=== PATIENT | female | born 1945 | race Caucasian/White ===

== ENCOUNTER → 2016-11-15 | Outpatient (CLI) | payer MEDICARE, OTHER | END | disposition home or self-care (01) | LOC: GMAL 12:26 | PROVIDERS: ATTEND Family Medicine | DX: D51.3 Other dietary vitamin B12 deficiency anemia (principal); E55.9 Vitamin D deficiency, unspecified ==

== ENCOUNTER 2017-03-12 05:52 | Day surgery (SDC) | payer MEDICARE, OTHER ==
[2017-03-12] MEDS ORDERED: PROPOFOL 200 MG/20 ML VIAL IV ONE (07:00)
[2017-03-12] MEDS ORDERED: LACTATED RINGERS 1,000 ML ONE (07:34)
--- NOTE | 2017-03-12 09:43 | OP ---
DATE OF PROCEDURE: 03/12/17 PREOPERATIVE DIAGNOSIS: 1. Bright red blood per rectum. POSTOPERATIVE DIAGNOSIS: 1. Multiple polypectomies, cecum, ascending colon and hepatic flexure. 2. Internal and external hemorrhoids. 3. Mild sigmoid diverticulosis. 4. 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 PROCEDURE: 1. Colonoscopy. SURGEON: Surjit Landaverde MD. ANESTHESIA: MAC. PROCEDURE: Informed consent was obtained prior to sedation. The preprocedure cardiopulmonary assessment was satisfactory. The patient was placed in the left lateral decubitus position and was sedated. The tip of the Olympus colonoscope was inserted in the rectum and guided through the entire colon under direct visualization. The ileocecal valve and appendiceal orifice were identified. In the cecum, there was a 4 mm polyp that was resected and retrieved using a hot snare. In the ascending colon, there were 3 polyps that were resected and retrieved. These measured between 3 and 5 mm. In the hepatic flexure, there were 2 polyps. They were resected and retrieved using a hot snare. Continuation of withdrawal showed evidence of arteriovenous malformations in the ascending colon and cecum. In the sigmoid colon, there was some evidence of small diverticulosis the rectum appeared normal except for internal hemorrhoids. These were found during retroflexion. No other abnormality was identified during the colonoscopy. The scope was withdrawn from the patient and the procedure was terminated. RECOMMENDATION: 1. Cologuard stool sample in 3 years. Repeat colonoscopy immediately of Cologuard sample is positive. 2. Watch for complications like bleeding, abdominal pain or other and return to the Emergency Room immediately. 3. Followup path. 4. If Cologuard is negative, repeat colonoscopy in 5 years. 5. Consider hemorrhoidal banding for internal hemorrhoid management. 6. Followup in my office in 4 weeks. #[id number] [facility]
[2017-03-12 10:12] VITALS: O2SAT 100
[2017-03-12 13:06] VITALS: BP 174/67; TEMP 98
== END 2017-03-12 10:10 | disposition home or self-care (01) ==
LOC: AMB 05:52
DX: K62.5 Hemorrhage of anus and rectum (principal); D12.0 Benign neoplasm of cecum; D12.2 Benign neoplasm of ascending colon; D12.3 Benign neoplasm of transverse colon; K64.8 Other hemorrhoids; K64.4 Residual hemorrhoidal skin tags; K57.30 Diverticulosis of large intestine without perforation or abscess without bleeding; Q27.33 Arteriovenous malformation of digestive system vessel; Z86.010 Personal history of colon polyps; Z79.899 Other long term (current) drug therapy
CPT/HCPCS: 00810; 45385; J3490; J7120

== ENCOUNTER → 2017-05-19 | Outpatient (CLI) | payer MEDICARE, OTHER | END | disposition home or self-care (01) | LOC: GMAL 11:36 | PROVIDERS: ATTEND Family Medicine | DX: D51.3 Other dietary vitamin B12 deficiency anemia (principal); E55.9 Vitamin D deficiency, unspecified ==

== ENCOUNTER → 2017-06-16 | Outpatient (CLI) | payer MEDICARE, OTHER ==
--- NOTE | 2017-06-16 19:04 | CT ---
EXAM DESCRIPTION: Abdomen/Pelvis w/Contrast (accession [id number]), Chest w/Contrast (accession [id number]) CLINICAL HISTORY: 72 years, Female, ABNORMAL WEIGHT LOSS COMPARISON: October 18, 2012 TECHNIQUE: CT of the chest, abdomen, and pelvis are performed following IV administration of nonionic contrast. This exam was performed according to our departmental dose-optimization program, which includes automated exposure control, adjustment of the mA and/or kV according to patient size and/or use of iterative reconstruction technique. FINDINGS: Contrast enhanced examination of the chest demonstrates no evidence of pulmonary mass or dense consolidation or pleural effusion. A pattern to suggest metastatic disease is not apparent. The chest wall and axillary region as well as the thoracic inlet and mediastinum are unremarkable. In the anterior mediastinum is a triangular-shaped approximate 2.5 x 3 cm water density mass most consistent with some form of mediastinal cyst. Attenuation values consistent with water are present. A teratoma or lymph node or lymphoma or thymoma is thought unlikely particularly with the water density of the small mass. MRI examination of the chest without and with contrast enhancement in an effort to prove this represents a benign cystic abnormality is recommended. The hilar structures and remainder the mediastinum is unremarkable with a very small retrocardiac hiatal hernia noted. Abdominal CT demonstrates normal enhancement of the liver without metastatic disease or mass. Benign moderate left renal cyst upper pole and moderately large approximate 4 cm mid pole right renal cyst is noted. Extensive aortic calcification is evident. Contrast extends throughout the abdomen and fills the colon to the level of the rectum. Uterus appears to be surgically absent. No abdominal ascites or pelvic fluid collections are noted. The gallbladder is normally distended without ductal dilation and the pancreas is moderately atrophic. A small normal spleen is present and normal-appearing adrenal glands are noted. Extensive aortic calcification without aneurysm is noted. IMPRESSION: 1. Somewhat triangularly shaped 2.5 x 3 cm water density mass in the anterior mediastinum in the midline retrosternal region. 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 Confirmation of a cystic character with MR examination without and with contrast enhancement is recommended. The low-density appearance of this lesion suggests that lymphoma or teratoma or thymoma represent unlikely possibilities. 2. Moderate aortic atherosclerosis without aneurysm within the abdomen. 3. Cystic disease of each kidney. 4. Remainder the chest and abdomen is unremarkable without changes of metastatic disease. 5. Multilevel lumbar spine disease with multiple [id number] compression deformities and dense calcification of the disc at T11-12 with herniation of calcified disc material into the anterior spinal canal. This herniation of calcified disc material posteriorly is new since 2013 examination. Interval development of degenerative spondylolisthesis at the L5-S1 mild is also noted since prior 2013 study. Electronically signed by: Garland Bruce MD 06/16/2017 7:[address] [facility]
--- NOTE | 2017-06-16 19:04 | CT ---
EXAM DESCRIPTION: Abdomen/Pelvis w/Contrast (accession [id number]), Chest w/Contrast (accession [id number]) CLINICAL HISTORY: 72 years, Female, ABNORMAL WEIGHT LOSS COMPARISON: October 18, 2012 TECHNIQUE: CT of the chest, abdomen, and pelvis are performed following IV administration of nonionic contrast. This exam was performed according to our departmental dose-optimization program, which includes automated exposure control, adjustment of the mA and/or kV according to patient size and/or use of iterative reconstruction technique. FINDINGS: Contrast enhanced examination of the chest demonstrates no evidence of pulmonary mass or dense consolidation or pleural effusion. A pattern to suggest metastatic disease is not apparent. The chest wall and axillary region as well as the thoracic inlet and mediastinum are unremarkable. In the anterior mediastinum is a triangular-shaped approximate 2.5 x 3 cm water density mass most consistent with some form of mediastinal cyst. Attenuation values consistent with water are present. A teratoma or lymph node or lymphoma or thymoma is thought unlikely particularly with the water density of the small mass. MRI examination of the chest without and with contrast enhancement in an effort to prove this represents a benign cystic abnormality is recommended. The hilar structures and remainder the mediastinum is unremarkable with a very small retrocardiac hiatal hernia noted. Abdominal CT demonstrates normal enhancement of the liver without metastatic disease or mass. Benign moderate left renal cyst upper pole and moderately large approximate 4 cm mid pole right renal cyst is noted. Extensive aortic calcification is evident. Contrast extends throughout the abdomen and fills the colon to the level of the rectum. Uterus appears to be surgically absent. No abdominal ascites or pelvic fluid collections are noted. The gallbladder is normally distended without ductal dilation and the pancreas is moderately atrophic. A small normal spleen is present and normal-appearing adrenal glands are noted. Extensive aortic calcification without aneurysm is noted. IMPRESSION: 1. Somewhat triangularly shaped 2.5 x 3 cm water density mass in the anterior mediastinum in the midline retrosternal region. 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 Confirmation of a cystic character with MR examination without and with contrast enhancement is recommended. The low-density appearance of this lesion suggests that lymphoma or teratoma or thymoma represent unlikely possibilities. 2. Moderate aortic atherosclerosis without aneurysm within the abdomen. 3. Cystic disease of each kidney. 4. Remainder the chest and abdomen is unremarkable without changes of metastatic disease. 5. Multilevel lumbar spine disease with multiple [id number] compression deformities and dense calcification of the disc at T11-12 with herniation of calcified disc material into the anterior spinal canal. This herniation of calcified disc material posteriorly is new since 2013 examination. Interval development of degenerative spondylolisthesis at the L5-S1 mild is also noted since prior 2013 study. Electronically signed by: Garland Bruce MD 06/16/2017 7:03 PM [facility]
== END | disposition home or self-care (01) ==
LOC: CT 09:45
PROVIDERS: ATTEND Family Medicine
DX: R63.4 Abnormal weight loss (principal)

== ENCOUNTER 2018-06-08 09:57 | Emergency (ER) | payer MEDICARE ==
[2018-06-08 10:20] VITALS: TEMP 96.9; O2SAT 98
--- NOTE | 2018-06-08 11:16 | RAD ---
EXAM DESCRIPTION: Chest,1 View CLINICAL HISTORY: syncope COMPARISON: Portable chest 01/03/2012. CT scan of the head without IV contrast on this visit. TECHNIQUE: AP portable taken at 1057 hours, upright position. FINDINGS: Hyperinflation of the lungs bilaterally. No infiltrate. Nodule in the suprahilar right lung may represent a vascular structure. A smaller nodule is seen in the interspace between the anterior second and third right ribs in the posterior right fourth and fifth ribs. No pleural effusion or pneumothorax bilaterally. Heart size and pulmonary vascularity unremarkable. Atherosclerotic changes of the aorta. Senescent changes of the thoracic osseous structures including cartilage with calcification. IMPRESSION: 2 well-defined radiodense nodules versus vascular structures are other nonspecific densities overlying the right upper lobe right lung. Also emphysematous changes in both lungs. Consider follow-up chest CT scan on a nonemergent basis to evaluate for pulmonary nodules. No cardiomegaly or pulmonary vascular congestion. Electronically signed by: Brown Novak MD 06/08/2018 11:15 AM [employer]
--- NOTE | 2018-06-08 11:23 | CT ---
EXAM DESCRIPTION: Head: Computed Tomography. CLINICAL HISTORY: syncope COMPARISON: Chest x-ray on the same visit. TECHNIQUE: Non-helical axial scans through the skull and brain, at 2.5 x 20 mm intervals, non-contrast. Coronal and sagittal 2.0 mm reconstructions. Total Exam DLP: 752.48 mGy-cm. This exam was performed according to our departmental dose-optimization program which includes automated exposure control, adjustment of the mA and/or kV according to patient size and/or use of iterative reconstruction technique; to reduce radiation dose to as low as reasonably achievable (ALARA). FINDINGS: No hemorrhage, no mass-effect, and no midline shift. Periventricular white matter shows low-density predominantly in the frontal lobes, more left than right no abnormal radiodense material in the brain parenchyma. Vascular calcifications anterior.; physiologic calcifications in the pineal gland and choroid plexus. No effacement or displacement of the ventricles, CSF spaces, or subdural spaces. No extra axial fluid collection or hemorrhage. No gross abnormalities of the bony calvarium. The paranasal sinuses are unremarkable. Minimal soft tissue density in the inferior mastoid air cells bilaterally. IMPRESSION: 1. No hemorrhage, no mass effect, no midline shift. Bilateral white matter changes most likely related to cerebral microvascular disease and aging. Slightly more prominent in the left periventricular frontal lobe, abutting the left frontal horn. 2. CT scans are insensitive for detecting small CVAs in the first 24 hours after onset. Evaluation of the brain stem is also limited. If symptoms persist, consider NON-EMERGENT MRI scan of the brain with diffusion imaging. 3. 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 Electronically signed by: Brown Novak MD 06/08/2018 11:22 AM [facility]
[2018-06-08] MEDS ORDERED: MAGNESIUM SULFATE PREMIX 2GM 2 GM in PREMIX BAG 1 BAG IVPB ONE (11:28)
[2018-06-08] MEDS ORDERED: POTASSIUM CHLORIDE ELIXIR 20 MEQ/15 ML UD PO ONE ×2 (11:28→12:30)
[2018-06-08] MEDS ORDERED: MAGNESIUM SULFATE PREMIX 2GM 50 ML IVPB ONE (11:35)
[2018-06-08 12:04] VITALS: BP 129/69
[2018-06-08] MEDS ORDERED: CIPROFLOXACIN 500 MG TAB PO ONE (12:30)
--- NOTE | 2018-06-08 12:45 | ED.PDOC ---
History of Present Illness - General Chief Complaint: Neuro Symptoms/Deficits Stated Complaint: fainting and fall Time Seen by Provider: 06/08/18 10:03 Source: patient Exam Limitations: no limitations - History of Present Illness Initial Comments: the patient is a 73-year-old female presenting to the emergency room after having passed out while getting out of bed this morning. The patient reports that she has had dizziness with getting up for the better part of the last year. She has had several near syncopal episodes and she is actually passed out a couple of times. She presented to the emergency room today because she had some skin tears and was hurting more than normal. She does take a water pill. She does have known lung disease. She does take a daily steroid. No fevers. No new symptoms otherwise. She did not hit her head. No confusion after she woke up. No neck pain. No chest pain. No new shortness of breath. No palpitations.she has minor skin tears over the left elbow and the left garcía. Timing/Duration: unsure Severity: moderate Improving Factors: nothing Worsening Factors: nothing Associated Symptoms: denies symptoms Allergies/Adverse Reactions: Allergies Penicillins Allergy (Verified 01/17/16 11:35) Home Medications: Ambulatory Orders Alprazolam [Xanax Xr] 1.5 mg PO BEDTIME 12/07/13 Ipratropium-Albuterol [Combivent Respimat] 1 aer IN PRN PRN 12/07/13 Triamterene & Hydrochlorothiaz [Triamterene/Hydrochloroth 37.5-25 mg] 1 tab PO DAILY 12/07/13 Losartan Potassium [Cozaar] 100 mg PO BEDTIME 01/17/16 Symbicort Inhaler 160/4.5 1 puff NEB BID 03/11/17 Amlodipine Besylate 5 mg PO DAILY 06/08/18 Biotin [Biotin Maximum] 10,000 mcg PO DAILY 06/08/18 Cholecalciferol [D3 2000] 1,000 unit PO 06/08/18 Ciprofloxacin [Cipro] 500 mg PO BID #6 tab 06/08/18 Cyanocobalamin [B12] 2,500 mcg PO DAILY 06/08/18 Potassium Chloride [Potassium Chloride ER] 20 meq PO DAILY #14 tab 06/08/18 Prednisone 5 mg PO SRIRAM-OTH-DAY 06/08/18 Prednisone 10 mg PO SRIRAM-OTH-DAY 06/08/18 Review of Systems - Review of Systems Constitutional: States: malaise EENTM: States: no symptoms reported Respiratory: States: short of breath - chronic Cardiology: States: no symptoms reported Gastrointestinal/Abdominal: States: no symptoms reported Genitourinary: States: no symptoms reported Musculoskeletal: States: back pain - chronic Skin: States: see HPI Neurological: States: no symptoms reported Endocrine: States: no symptoms reported All other Systems: No Change from Baseline Past Medical History (General) - Patient Medical History Hx Asthma: Yes Hx of COPD: Yes Hx Congestive Heart Failure: No Hx Hypertension: Yes Hx Diabetes: No Hx MRSA: No - Vaccination History Hx Tetanus, Diphtheria Vaccination: No Hx Influenza Vaccination: Yes - 2015 Hx Pneumococcal Vaccination: Yes - 2015 - Social History Hx Tobacco Use: Yes - quit over 10 yrs ago - Female History Patient : No - Triage Comment ED Triage Comment: EMS states patient had syncopical episode and fell hitting her left elbow. C/o left elobw pain. Family Medical History - Family History Mother Family History: Unknown Living Status: Physical Exam - Physical Exam General Appearance: Alert, Anxious, No apparent distress Eye Exam: bilateral normal Ears, Nose, Throat: hearing grossly normal, other - poor fitting dentures Neck: full range of motion, supple Respiratory: lungs clear, normal breath sounds, no respiratory distress, no accessory muscle use Cardiovascular/Chest: normal peripheral pulses, regular rate, rhythm, no edema Peripheral Pulses: radial,right: 2+, radial,left: 2+, dorsalis pedis,right: 2+, dorsalis pedis,left: 2+ Gastrointestinal/Abdominal: non tender, soft Rectal Exam: deferred Back Exam: other - hronic diffuse back discomfort palpation. No obvious new injury Extremity: normal range of motion, no pedal edema, no calf tenderness, normal capillary refill Neurologic: press tender smoke signal II-XII nml as tested, alert, normal mood/affect - she is anxious , oriented x 3 Skin Exam: normal color - skin tears to the left elbow and left garcía. These are minor. Comments: Vital Signs - 24 hr 06/08/18 06/08/18 10:00 12:00 Temperature 96.9 F L Pulse Rate [ 96 H 97 H monitor] Respiratory 18 20 Rate Blood Pressure 129/69 [Left Arm] Blood Pressure 138/70 [right] O2 Sat by Pulse 98 98 Oximetry Progress - Progress Progress: 06/08/18 12:48 the patient is a 73-year-old female presenting to emergency room after a syncopal episode this morning. This appears to be most likely due to electrolyte issues. The patient is hyponatremic, hypokalemic and has a low magnesium as well. Additionally she is in mild acute renal failure. She does have a mild UTI. The sodium, potassium and magnesium issues are likely related to her diuretics. These will be held at least for the next week. if a diuretic needs to be restarted then consideration could be given towards using low-dose intermittent Lasix or spironolactone. She has received a liter of IV fluids here to help with the renal insufficiency. Her kidney function as well as electrolytes need to be rechecked next week. I did offer to put the patient in the hospital to correct slowly with mild hypertonic saline overnight however she has declined this as she has animals to take care of and her house to winterize before the freeze tonight. The patient will be written for oral potassium to take for the next few weeks as a supplement. She was given 80 mEq here. She was also given 2 g of magnesium here. She will also be written for ciprofloxacin for 3 days for UTI. It is a mild urinary tract infection that is in all likelihood asymptomatic. The patient does need to have a CT scan of the chest with IV contrast in coming weeks due to the pulmonary nodules in the right upper lobe as well as for follow-up of the mediastinal cystic structure noted on previous CT scan. These may possibly be contributing to the hyponatremia as well. She is otherwise to continue her routine home medications. She needs to follow back up with her primary care doctor next week for the above issues. ER warnings were given for any worsening. Skin tears received localized wound care. incidentally, the patient does appear to have a mild reflex tachycardia with standing, with an associated mild rise in blood pressure. She may benefit from having a heart rate control medication added in place of her amlodipine. We will defer this decision to her primary care doctor. - Results/Orders Results/Orders: Laboratory Tests 06/08/18 06/08/18 06/08/18 10:40 10:55 11:30 WBC RBC Hgb Hct MCV MCH MCHC RDW Plt Count MPV Absolute Neuts (auto) Absolute Lymphs (auto) Absolute Monos (auto) Absolute Eos (auto) Absolute Basos (auto) Neutrophils % Lymphocytes % Monocytes % Eosinophils % Basophils % PT 9.8 INR 0.98 PTT (SP) 23.6 Sodium Potassium Chloride Carbon Dioxide Anion Gap BUN Creatinine BUN/Creatinine Ratio Random Glucose Serum Osmolality Lactic Acid 1.0 Calcium Magnesium Total Bilirubin AST ALT Alkaline Phosphatase Creatine Kinase CK-MB (CK-2) CK-MB (CK-2) % Troponin I B-Natriuretic Peptide Serum Total Protein Albumin Globulin Albumin/Globulin Ratio TSH Urine Color Yellow Urine Appearance Clear Urine pH 6.0 Ur Specific Warren <= 1.005 Urine Protein Negative Urine Glucose (UA) Negative Urine Ketones Negative Urine Blood Trace-lysed H Urine Nitrite Negative Urine Bilirubin Negative Urine Urobilinogen 0.2 Ur Leukocyte Esterase Small H Urine RBC 0-1 Urine WBC 10-20 H Ur Epithelial Cells 3-5 Ur Renal Epithelial Cell 5-10 Urine Bacteria Rare 06/08/18 06/08/18 Unknown Unknown WBC 7.7 RBC 4.29 Hgb 13.6 Hct 39.4 MCV 92.0 MCH 31.6 H MCHC 34.4 RDW 13.3 Plt Count 320 MPV 7.0 L Absolute Neuts (auto) 4.80 Absolute Lymphs (auto) 2.00 Absolute Monos (auto) 0.80 Absolute Eos (auto) 0.10 Absolute Basos (auto) 0.10 Neutrophils % 62.3 Lymphocytes % 25.6 Monocytes % 9.9 H Eosinophils % 1.3 Basophils % 0.9 PT INR PTT (SP) Sodium 126 L Potassium 2.9 L Chloride 87 L Carbon Dioxide 26 Anion Gap 15.9 BUN 29 H Creatinine 1.56 H BUN/Creatinine Ratio 18.6 Random Glucose 130 H Serum Osmolality 260.9 L Lactic Acid Calcium 9.6 Magnesium 1.7 L Total Bilirubin 1.1 H AST 30 ALT 28 Alkaline Phosphatase 46 Creatine Kinase 154 H CK-MB (CK-2) 4.8 H* CK-MB (CK-2) % 3.12 Troponin I < 0.02 B-Natriuretic Peptide 25.2 Serum Total Protein 6.9 Albumin 4.4 Globulin 2.5 Albumin/Globulin Ratio 1.8 TSH 4.09 Urine Color Urine Appearance Urine pH Ur Specific Warren Urine Protein Urine Glucose (UA) Urine Ketones Urine Blood Urine Nitrite Urine Bilirubin Urine Urobilinogen Ur Leukocyte Esterase Urine RBC Urine WBC Ur Epithelial Cells Ur Renal Epithelial Cell Urine Bacteria chest x-ray shows 2 new small nodules in the right upper lung field. Follow-up CT scan is recommended on a nonemergent basis. EKG shows normal sinus rhythm at 95 bpm. Normal axis. Normal R-wave progression. No acute ST segment changes concerning for ischemia. Head CT shows no acute findings. Chronic findings are present. Departure - Departure Clinical Impression: Hyponatremia, Hypokalemia, Hypomagnesemia, Cystitis Acute renal failure Qualifiers: Acute renal failure type: unspecified Qualified Code(s): N17.9 - Acute kidney failure, unspecified Disposition: Discharge to Home or Self Care Condition: Fair Departure Forms: ED Discharge - Pt. Copy, Patient Portal Self Enrollment Instructions: DI for Syncope in Adults (Fainting), Hyponatremia (DC), Hypokalemia (DC), Urinary Tract Infections in Adults Diet: regular diet Activity: increase activity as tolerated Referrals: Wan Conteh III, MD [Primary Care Provider] - 1-2 Weeks Prescriptions: Ciprofloxacin [Cipro] 500 mg PO BID #6 tab Potassium Chloride [Potassium Chloride ER] 20 meq PO DAILY #14 tab Home Medications: Ambulatory Orders Alprazolam [Xanax Xr] 1.5 mg PO BEDTIME 12/07/13 Ipratropium-Albuterol [Combivent Respimat] 1 aer IN PRN PRN 12/07/13 Triamterene & Hydrochlorothiaz [Triamterene/Hydrochloroth 37.5-25 mg] 1 tab PO DAILY 12/07/13 Losartan Potassium [Cozaar] 100 mg PO BEDTIME 01/17/16 Symbicort Inhaler 160/4.5 1 puff NEB BID 03/11/17 Amlodipine Besylate 5 mg PO DAILY 06/08/18 Biotin [Biotin Maximum] 10,000 mcg PO DAILY 06/08/18 Cholecalciferol [D3 2000] 1,000 unit PO 06/08/18 Ciprofloxacin [Cipro] 500 mg PO BID #6 tab 06/08/18 Cyanocobalamin [B12] 2,500 mcg PO DAILY 06/08/18 Potassium Chloride [Potassium Chloride ER] 20 meq PO DAILY #14 tab 06/08/18 Prednisone 5 mg PO SRIRAM-OTH-DAY 06/08/18 Prednisone 10 mg PO SRIRAM-OTH-DAY 06/08/18 Additional Instructions: the patient is a 73-year-old female presenting to emergency room after a syncopal episode this morning. This appears to be most likely due to electrolyte issues. The patient is hyponatremic, hypokalemic and has a low magnesium as well. Additionally she is in mild acute renal failure. She does have a mild UTI. The sodium, potassium and magnesium issues are likely related to her diuretics, Triamterene hydrochlorothiazide. These will be held at least for the next week. if a diuretic needs to be restarted then consideration could be given towards using low-dose intermittent Lasix or spironolactone. She has received a liter of IV fluids here to help with the renal insufficiency. Her kidney function as well as electrolytes need to be rechecked next week. I did offer to put the patient in the hospital to correct slowly with mild hypertonic saline overnight however she has declined this as she has animals to take care of and her house to winterize before the freeze tonight. The patient will be written for oral potassium to take for the next few weeks as a supplement. She was given 80 mEq here. She was also given 2 g of magnesium here. She will also be written for ciprofloxacin for 3 days for UTI. It is a mild urinary tract infection that is in all likelihood asymptomatic. The patient does need to have a CT scan of the chest with IV contrast in coming weeks due to the pulmonary nodules in the right upper lobe as well as for follow-up of the mediastinal cystic structure noted on previous CT scan. These may possibly be contributing to the hyponatremia as well. She is otherwise to continue her routine home medications. She needs to follow back up with her primary care doctor next week for the above issues. ER warnings were given for any worsening. Skin tears received localized wound care. incidentally, the patient does appear to have a mild reflex tachycardia with standing, with an associated mild rise in blood pressure. She may benefit from having a heart rate control medication added in place of her amlodipine. We will defer this decision to her primary care doctor.
[2018-06-08] MEDS ORDERED: NEOMYCIN-BACITRACIN-POLYMYXIN 0.9 GM UD TOP ONE (13:07)
== END 2018-06-08 14:20 | disposition home or self-care (01) ==
LOC: ER 09:57
DX: N30.90 Cystitis, unspecified without hematuria (principal); N17.9 Acute kidney failure, unspecified; E87.1 Hypo-osmolality and hyponatremia; E87.6 Hypokalemia; E83.42 Hypomagnesemia; R55 Syncope and collapse; J44.9 Chronic obstructive pulmonary disease, unspecified; I10 Essential (primary) hypertension; Z79.899 Other long term (current) drug therapy; Z88.0 Allergy status to penicillin
CPT/HCPCS: 36415; 70450; 71045; 80053; 81001; 82550; 82553; 83605; 83735; 83880; 84443; 84484; 85025; 85610; 85730; 87086; 93005; J3475

== ENCOUNTER → 2018-10-21 | Outpatient (CLI) | payer MEDICARE | LOC: GMAL 14:53 | PROVIDERS: ATTEND Family Medicine | DX: D51.3 Other dietary vitamin B12 deficiency anemia (principal); E55.9 Vitamin D deficiency, unspecified ==

== ENCOUNTER 2018-10-24 17:07 | Emergency (ER) | payer MEDICARE ==
[2018-10-24 17:25] VITALS: TEMP 97
[2018-10-24] MEDS: hydrALAZINE HCl 20 MG/ML VIAL IV ONE (17:55)
--- NOTE | 2018-10-24 18:21 | ED.PDOC ---
History of Present Illness - General Chief Complaint: General Stated Complaint: elevated blood pressure Time Seen by Provider: 10/24/18 18:15 Source: patient Exam Limitations: no limitations - History of Present Illness Initial Comments: Anabel Owen 73 y/o female came to ER after she noted that she could not get her blood pressure to come down since this noon had taken Clonidine 0.1 mg this am.Denies chest pains,headache,blurry vision,dizziness.Stated had been forgetful about taking her high blood pressure pills. Timing/Duration: 4-6 hours, constant Severity: moderate Improving Factors: nothing Worsening Factors: nothing Associated Symptoms: denies symptoms, other - see hpi Allergies/Adverse Reactions: Allergies Penicillins Allergy (Verified 01/17/16 11:35) Home Medications: Ambulatory Orders Alprazolam [Xanax Xr] 1.5 mg PO BEDTIME 12/07/13 Ipratropium-Albuterol [Combivent Respimat] 1 aer IN PRN PRN 12/07/13 Triamterene & Hydrochlorothiaz [Triamterene/Hydrochloroth 37.5-25 mg] 1 tab PO DAILY 12/07/13 Losartan Potassium [Cozaar] 100 mg PO BEDTIME 01/17/16 Symbicort Inhaler 160/4.5 1 puff NEB BID 03/11/17 Biotin [Biotin Maximum] 10,000 mcg PO DAILY 06/08/18 Cholecalciferol [D3 2000] 1,000 unit PO DAILY 06/08/18 Cyanocobalamin [B12] 2,500 mcg PO DAILY 06/08/18 Prednisone 5 mg PO SRIRAM-OTH-DAY 06/08/18 Prednisone 10 mg PO SRIRAM-OTH-DAY 06/08/18 Clonidine HCl 0.1 mg PO DAILY PRN 10/24/18 Levofloxacin 500 mg PO DAILY 10/24/18 Potassium Chloride [Potassium Chloride ER] 20 meq PO DAILY 10/24/18 Review of Systems - Review of Systems Constitutional: States: no symptoms reported EENTM: States: no symptoms reported Respiratory: States: no symptoms reported Cardiology: States: no symptoms reported Gastrointestinal/Abdominal: States: no symptoms reported Genitourinary: States: no symptoms reported All other Systems: Reviewed and Negative, No Change from Baseline Past Medical History (General) - Patient Medical History Hx Stroke: No Hx Asthma: Yes Hx of COPD: Yes Hx Congestive Heart Failure: No Hx Hypertension: Yes Hx Diabetes: No Hx MRSA: No Surgical History: Hysterectomy, other - hysterectomy,back -lumbar - Vaccination History Hx Tetanus, Diphtheria Vaccination: No Hx Influenza Vaccination: Yes - 2015 Hx Pneumococcal Vaccination: Yes - 2016 - Social History Hx Tobacco Use: Yes - quit over 10 yrs ago - Female History Patient : No Family Medical History - Family History Mother Family History: Unknown Living Status: Hx Family Hypertension: Yes - multiple family members Hx Cardiac Disease: Yes - multiple family members Physical Exam - Physical Exam General Appearance: Alert, Comfortable, No apparent distress Eye Exam: bilateral normal Ears, Nose, Throat: hearing grossly normal, normal ENT inspection, normal pharynx Neck: non-tender, full range of motion, supple, normal inspection Respiratory: chest non-tender, lungs clear, normal breath sounds, no respiratory distress Cardiovascular/Chest: normal peripheral pulses, regular rate, rhythm, no murmur Peripheral Pulses: radial,right: 2+, radial,left: 2+ Gastrointestinal/Abdominal: normal bowel sounds, non tender, soft, no organomegaly, no pulsatile mass Back Exam: no CVA tenderness, no vertebral tenderness Extremity: no pedal edema, no calf tenderness Neurologic: alert, oriented x 3 Skin Exam: normal color, warm/dry Progress - Progress Progress: 10/24/18 18:23 Vital Signs - 8 hr 10/24/18 10/24/18 10/24/18 17:22 18:00 18:20 Temperature 97.0 F L Pulse Rate [ 75 91 H 91 H left brachial] Respiratory 20 16 Rate Blood Pressure 221/104 174/79 [left brachial] O2 Sat by Pulse 97 95 Oximetry - Results/Orders Results/Orders: 10/25/18 09:00 Losartan Potassium [Cozaar] 100 mg PO DAILY Laboratory Results - last 24 hr 10/24/18 10/24/18 17:32 17:32 WBC 13.9 H RBC 4.21 Hgb 13.2 Hct 38.6 MCV 91.8 MCH 31.4 H MCHC 34.2 RDW 13.5 Plt Count 490 H MPV 6.6 L Absolute Neuts (auto) 10.80 H Absolute Lymphs (auto) 2.40 Absolute Monos (auto) 0.60 Absolute Eos (auto) 0.00 Absolute Basos (auto) 0.00 Neutrophils % 77.5 Lymphocytes % 17.4 L Monocytes % 4.7 Eosinophils % 0.3 L Basophils % 0.1 Sodium 130 L Potassium 4.2 Chloride 96 L Carbon Dioxide 25 Anion Gap 13.2 BUN 33 H Creatinine 0.85 BUN/Creatinine Ratio 38.8 H Random Glucose 113 H Serum Osmolality 268.9 L Calcium 9.0 Discuss all test results with patient Departure - Departure Clinical Impression: Rebound hypertension Time of Disposition: 19:53 Disposition: Discharge to Home or Self Care Condition: Fair Departure Forms: ED Discharge - Pt. Copy, Patient Portal Self Enrollment Instructions: High Blood Pressure in Adults, DASH Diet, High Blood Pressure (DC) Referrals: Wan Conteh III, MD [Primary Care Provider] - 1-2 Weeks Home Medications: Ambulatory Orders Alprazolam [Xanax Xr] 1.5 mg PO BEDTIME 12/07/13 Ipratropium-Albuterol [Combivent Respimat] 1 aer IN PRN PRN 12/07/13 Triamterene & Hydrochlorothiaz [Triamterene/Hydrochloroth 37.5-25 mg] 1 tab PO DAILY 12/07/13 Losartan Potassium [Cozaar] 100 mg PO BEDTIME 01/17/16 Symbicort Inhaler 160/4.5 1 puff NEB BID 03/11/17 Biotin [Biotin Maximum] 10,000 mcg PO DAILY 06/08/18 Cholecalciferol [D3 2000] 1,000 unit PO DAILY 06/08/18 Cyanocobalamin [B12] 2,500 mcg PO DAILY 06/08/18 Prednisone 5 mg PO SRIRAM-OTH-DAY 06/08/18 Prednisone 10 mg PO SRIRAM-OTH-DAY 06/08/18 Clonidine HCl 0.1 mg PO DAILY PRN 10/24/18 Levofloxacin 500 mg PO DAILY 10/24/18 Potassium Chloride [Potassium Chloride ER] 20 meq PO DAILY 10/24/18 Additional Instructions: Need to take your high blood pressure medications regularly;continue with all home medications;Return to ER as needed
[2018-10-24] MEDS: LOSARTAN POTASSIUM 100 MG TAB PO SCH (18:23)
[2018-10-24] MEDS: SODIUM CHLORIDE 0.9% 500ML 500 ML IVS ONE (19:26)
[2018-10-24 19:42] VITALS: O2SAT 99
[2018-10-24 20:11] VITALS: BP 178/84
== END 2018-10-24 20:14 | disposition home or self-care (01) ==
LOC: ER 17:07
DX: I10 Essential (primary) hypertension (principal); J44.9 Chronic obstructive pulmonary disease, unspecified; Z79.899 Other long term (current) drug therapy; Z87.891 Personal history of nicotine dependence
CPT/HCPCS: 80048; 85025; J0360; J7040

== ENCOUNTER → 2019-04-09 | Outpatient (CLI) | payer MEDICARE ==
[~2019-04-09] MED LIST: ALBUTEROL SULFATE 2.5 MG/3 ML VIAL NEB ONE
== END ==
LOC: RESP 14:04
PROVIDERS: ATTEND Family Medicine
DX: J44.9 Chronic obstructive pulmonary disease, unspecified (principal)
CPT/HCPCS: 94060; J7611